=== PATIENT | male | born 1960 | race Caucasian/White ===

== ENCOUNTER 2018-06-02 10:14 | Inpatient (IN) | payer OTHER ==
[2018-06-02 10:28] LABS: ADD MAN DIFF? NO
[2018-06-02 10:32] LABS: WHITE BLOOD COUNT 7.8 10^3/ul (4.8-10.8)
[2018-06-02 10:32] LABS: BASOPHILS % 0.4 % (0.0-2.0); EOSINOPHILS # 0.1 10^3/ul (0.0-0.5); EOSINOPHILS % 1.4 % (0.0-7.0); HEMATOCRIT 41.6 % (42.0-52.0); LYMPHOCYTES # 0.9 10^3/ul (0.8-2.9); MEAN CORPUSCULAR HEMOGLOBIN 30.9 pg (29.0-33.0); MEAN CORPUSCULAR HGB CONC 33.7 g/dl (32.0-37.0); MEAN CORPUSCULAR VOLUME 91.8 fl (82.0-101.0); MEAN PLATELET VOLUME 9.1 fl (7.4-10.4); MONOCYTE # 0.5 10^3/ul (0.3-0.9); MONOCYTES % 6.9 % (0.0-11.0); NEUTROPHIL # 6.2 10^3/ul (1.6-7.5); NEUTROPHILS % 78.9 % (39.0-77.0); PLATELET COUNT 225 10^3/UL (140-415); RED BLOOD COUNT 4.53 10^6/ul (4.70-6.10); RED CELL DISTRIBUTION WIDTH 12.6 % (11.5-14.5)
[2018-06-02] MEDS: IODIXANOL LOCM 100 ML BTL (10:40)
[2018-06-02] MEDS: SOD CHLORIDE 0.9% 100 ML (10:40)
[2018-06-02 10:48] LABS: ALANINE AMINOTRANSFERASE 37 IU/L (13-69); ALBUMIN 3.2 g/dl (3.3-4.9); ALBUMIN/GLOBULIN RATIO 1.06; ALKALINE PHOSPHATASE 96 IU/L (42-121); ANION GAP 11 (8-16); ASPARTATE AMINO TRANSFERASE 36 IU/L (15-46); BILIRUBIN,INDIRECT 0.7 mg/dl (0-1.1); BILIRUBIN,TOTAL 0.7 mg/dl (0.2-1.3); BLOOD UREA NITROGEN 11 mg/dl (7-20); CALCIUM 9.1 mg/dl (8.4-10.2); CARBON DIOXIDE 27 mmol/L (21-31); CHLORIDE 108 mmol/L (97-110); CHOL/HDL RATIO 3.6 RATIO; CHOLESTEROL 124 mg/dl (100-200); CREATINE KINASE 731 IU/L (23-200); CREATININE 0.88 mg/dl (0.61-1.24); GLUCOSE 92 mg/dl (70-220); HDL CHOLESTEROL 34 mg/dl (30-78); LDL CHOLESTEROL,CALCULATED 75 mg/dl; POTASSIUM 4.1 mmol/L (3.5-5.1); SODIUM 142 mmol/L (135-144); TOTAL PROTEIN 6.2 g/dl (6.1-8.1); TRIGLYCERIDES 76 mg/dl (0-149)
[2018-06-02 10:50] LABS: ETHANOL < 10.0 mg/dl
[2018-06-02 10:52] LABS: INR 1.02; PARTIAL THROMBOPLASTIN TIME 26.8 Sec (23.0-35.0); PROTIME 13.5 Sec (11.9-14.9); PT RATIO 1.1
[2018-06-02 10:59] LABS: CK INDEX 0.8; CK-MB 5.73 ng/ml (0.0-2.4); TROPONIN-I < 0.012 ng/ml (0.000-0.120)
[2018-06-02] MEDS: LORAZEPAM 2 MG INJ IV (11:00)
[2018-06-02] MEDS ORDERED: HALOPERIDOL 5 MG INJ (12:05)
[2018-06-02 12:06] LABS: HEMOGLOBIN A1C 5.5 % (0-5.9)
[2018-06-02] MEDS: HALOPERIDOL 5 MG INJ IV (12:30)
[2018-06-02] MEDS: ASPIRIN 300 MG SUPP PR (13:19)
[2018-06-02] MEDS: SOD CHLORIDE 0.9% 1,000 ML IV (13:32)
[2018-06-02] MEDS ORDERED: NACL 0.9% 3 ML SYG IV (14:30)
[2018-06-02] MEDS: OXCARBAZEPINE 300 MG TAB PO (20:39)
[2018-06-02] MEDS: ARIPIPRAZOLE 5 MG TAB PO (20:40)
[2018-06-02] MEDS: BENZTROPINE 1 MG TAB PO (20:40)
[2018-06-03 06:15] LABS: ADD MAN DIFF? NO
[2018-06-03 06:30] LABS: WHITE BLOOD COUNT 6.6 10^3/ul (4.8-10.8)
[2018-06-03 06:30] LABS: BASOPHILS % 0.6 % (0.0-2.0); EOSINOPHILS # 0.2 10^3/ul (0.0-0.5); EOSINOPHILS % 3.3 % (0.0-7.0); HEMATOCRIT 41.9 % (42.0-52.0); HEMOGLOBIN 13.8 g/dl (14.0-18.0); LYMPHOCYTES # 1.3 10^3/ul (0.8-2.9); LYMPHOCYTES % 19.2 % (15.0-51.0); MEAN CORPUSCULAR HEMOGLOBIN 31.2 pg (29.0-33.0); MEAN CORPUSCULAR HGB CONC 32.9 g/dl (32.0-37.0); MEAN CORPUSCULAR VOLUME 94.8 fl (82.0-101.0); MEAN PLATELET VOLUME 9.4 fl (7.4-10.4); MONOCYTE # 0.4 10^3/ul (0.3-0.9); MONOCYTES % 6.6 % (0.0-11.0); NEUTROPHIL # 4.6 10^3/ul (1.6-7.5); PLATELET COUNT 215 10^3/UL (140-415); RED BLOOD COUNT 4.42 10^6/ul (4.70-6.10)
[2018-06-03 06:46] LABS: HEMOGLOBIN A1C 5.6 % (0-5.9)
[2018-06-03 07:01] LABS: ALANINE AMINOTRANSFERASE 29 IU/L (13-69); ALBUMIN 3.2 g/dl (3.3-4.9); ALKALINE PHOSPHATASE 87 IU/L (42-121); ANION GAP 11 (8-16); ASPARTATE AMINO TRANSFERASE 37 IU/L (15-46); BILIRUBIN,INDIRECT 0.6 mg/dl (0-1.1); BILIRUBIN,TOTAL 0.6 mg/dl (0.2-1.3); BLOOD UREA NITROGEN 13 mg/dl (7-20); CALCIUM 8.9 mg/dl (8.4-10.2); CARBON DIOXIDE 29 mmol/L (21-31); CHLORIDE 106 mmol/L (97-110); CREATININE 0.84 mg/dl (0.61-1.24); GLUCOSE 93 mg/dl (70-220); POTASSIUM 4.1 mmol/L (3.5-5.1); SODIUM 142 mmol/L (135-144); TOTAL PROTEIN 6.1 g/dl (6.1-8.1)
[2018-06-03] MEDS: BENZTROPINE 1 MG TAB PO ×2 (08:55→21:37)
[2018-06-03] MEDS: OXCARBAZEPINE 300 MG TAB PO ×2 (08:55→21:37)
[2018-06-03] MEDS: VENLAFAXINE (XR) 75 MG CAP PO (08:56)
[2018-06-03] MEDS ORDERED: VENLAFAXINE 25 MG TAB PO (09:00)
[2018-06-03] MEDS: ENOXAPARIN 30 MG/0.3 ML SYG SC (09:21)
[2018-06-03] MEDS: INFLUENZA VIRUS VACCINE 0.5 ML (DISPENSING) IM* (10:45)
[2018-06-03] MEDS: ASPIRIN (EC) 325 MG TAB PO (11:30)
[2018-06-03 12:26] LABS: ERYTHROCYTE SEDIMENTATION RATE 13 mm/Hr (0-20)
[2018-06-03 12:58] LABS: HIV 1&2 ANTIBODY NEGATIVE (NEGATIVE)
[2018-06-03 15:04] LABS: RAPID PLASMA REAGIN NONREACTIVE (NR)
[2018-06-03] MEDS: LORAZEPAM 2 MG INJ IV (16:00)
[2018-06-03] MEDS: ARIPIPRAZOLE 5 MG TAB PO (21:38)
[2018-06-04] MEDS: BENZTROPINE 1 MG TAB PO ×2 (08:41→20:49)
[2018-06-04] MEDS: VENLAFAXINE (XR) 75 MG CAP PO (08:41)
[2018-06-04] MEDS: ASPIRIN (EC) 325 MG TAB PO (08:41)
[2018-06-04] MEDS: OXCARBAZEPINE 300 MG TAB PO ×2 (08:41→20:49)
[2018-06-04] MEDS: ENOXAPARIN 30 MG/0.3 ML SYG SC (08:46)
[2018-06-04] MEDS: IBUPROFEN LIQUID (PED) 20 MG/ML CUP NGT ×3 (15:09→23:08)
[2018-06-04 19:51] LABS: HOMOCYSTEINE - CARDIOVASCULAR 17.6 umol/L (<11.4)
[2018-06-04] MEDS: ARIPIPRAZOLE 5 MG TAB PO (20:49)
[2018-06-04] MEDS: ATORVASTATIN 20 MG TAB PO (20:49)
[2018-06-04] MEDS: ZOLPIDEM 5 MG TAB PO (21:56)
[2018-06-05] MEDS: IBUPROFEN LIQUID (PED) 20 MG/ML CUP NGT (03:15)
[2018-06-05] MEDS: traMADol 50 MG TAB PO ×2 (07:00→20:16)
[2018-06-05] MEDS: LORAZEPAM 2 MG INJ IV (07:51)
[2018-06-05] MEDS: ASPIRIN (EC) 325 MG TAB PO (08:36)
[2018-06-05] MEDS: OXCARBAZEPINE 300 MG TAB PO ×2 (08:36→20:13)
[2018-06-05] MEDS: BENZTROPINE 1 MG TAB PO ×2 (08:36→20:09)
[2018-06-05] MEDS: VENLAFAXINE (XR) 75 MG CAP PO (08:36)
[2018-06-05] MEDS: ENOXAPARIN 30 MG/0.3 ML SYG SC (08:56)
[2018-06-05] MEDS ORDERED: LORAZEPAM 1 MG TAB PO (11:00)
[2018-06-05] MEDS: LORAZEPAM 1 MG TAB PO ×2 (11:04→20:14)
[2018-06-05] MEDS: ATORVASTATIN 20 MG TAB PO (20:13)
[2018-06-05] MEDS: ARIPIPRAZOLE 5 MG TAB PO (20:14)
[2018-06-06] MEDS: IBUPROFEN LIQUID (PED) 20 MG/ML CUP NGT (01:19)
[2018-06-06] MEDS: LORAZEPAM 1 MG TAB PO ×2 (06:29→15:53)
[2018-06-06] MEDS: ASPIRIN (EC) 325 MG TAB PO (08:23)
[2018-06-06] MEDS: BENZTROPINE 1 MG TAB PO ×2 (08:24→21:15)
[2018-06-06] MEDS: VENLAFAXINE (XR) 75 MG CAP PO (08:24)
[2018-06-06] MEDS: OXCARBAZEPINE 300 MG TAB PO ×2 (08:24→21:16)
[2018-06-06] MEDS: ENOXAPARIN 30 MG/0.3 ML SYG SC (08:30)
[2018-06-06] MEDS: traMADol 50 MG TAB PO ×2 (10:45→22:43)
[2018-06-06] MEDS: ARIPIPRAZOLE 5 MG TAB PO (21:15)
[2018-06-06] MEDS: ATORVASTATIN 20 MG TAB PO (21:15)
[2018-06-07] MEDS: LORAZEPAM 1 MG TAB PO ×2 (00:36→21:40)
[2018-06-07] MEDS: IBUPROFEN LIQUID (PED) 20 MG/ML CUP NGT ×2 (03:28→15:05)
[2018-06-07] MEDS: traMADol 50 MG TAB PO (05:56)
[2018-06-07] MEDS: ASPIRIN (EC) 325 MG TAB PO (09:53)
[2018-06-07] MEDS: BENZTROPINE 1 MG TAB PO ×2 (09:54→21:39)
[2018-06-07] MEDS: OXCARBAZEPINE 300 MG TAB PO ×2 (09:54→21:39)
[2018-06-07] MEDS: VENLAFAXINE (XR) 75 MG CAP PO (09:54)
[2018-06-07] MEDS: ENOXAPARIN 30 MG/0.3 ML SYG SC (10:00)
[2018-06-07] MEDS ORDERED: METOPROLOL 25 MG TAB PO (21:00)
[2018-06-07] MEDS ORDERED: ARIPIPRAZOLE 5 MG TAB PO (21:00)
[2018-06-07] MEDS ORDERED: OXCARBAZEPINE 300 MG TAB PO (21:00)
[2018-06-07] MEDS: ATORVASTATIN 20 MG TAB PO (21:39)
[2018-06-07] MEDS: ARIPIPRAZOLE 10 MG TAB PO (21:40)
[2018-06-08] MEDS: IBUPROFEN LIQUID (PED) 20 MG/ML CUP NGT (01:52)
[2018-06-08] MEDS: ONDANSETRON 4 MG INJ IV (04:32)
[2018-06-08] MEDS: traMADol 50 MG TAB PO ×3 (05:00→21:53)
[2018-06-08 05:06] LABS: ADD UMIC YES; UR ASCORBIC ACID NEGATIVE (NEGATIVE); UR BILIRUBIN (Dip) NEGATIVE (NEGATIVE); UR BLOOD (Dip) NEGATIVE (NEGATIVE); UR CLARITY CLEAR (CLEAR); UR COLOR YELLOW (YELLOW); UR GLUCOSE (Dip) NEGATIVE (NEGATIVE); UR KETONES (Dip) NEGATIVE (NEGATIVE); UR LEUKOCYTE ESTERASE (Dip) NEGATIVE Leu/ul (NEGATIVE); UR MUCUS FEW /HPF (NONE SEEN); UR NITRITE (Dip) NEGATIVE (NEGATIVE); UR RBC 0 /HPF (0-5); UR SPECIFIC GRAVITY (Dip) 1.029 (1.003-1.030); UR TOTAL PROTEIN (Dip) 1+ mg/dl (NEGATIVE); UR UROBILINOGEN (Dip) 2+ mg/dL (NEGATIVE); UR WBC 1 /HPF (0-5)
[2018-06-08] MEDS: BENZTROPINE 1 MG TAB PO ×2 (08:54→21:53)
[2018-06-08] MEDS: VENLAFAXINE (XR) 75 MG CAP PO (08:55)
[2018-06-08] MEDS: OXCARBAZEPINE 300 MG TAB PO ×2 (08:55→21:54)
[2018-06-08] MEDS: ENOXAPARIN 30 MG/0.3 ML SYG SC (08:56)
[2018-06-08] MEDS: ASPIRIN (EC) 325 MG TAB PO (08:59)
[2018-06-08] MEDS ORDERED: ENOXAPARIN 30 MG/0.3 ML SYG SC (09:00)
[2018-06-08] MEDS ORDERED: OXCARBAZEPINE 300 MG TAB PO (09:00)
[2018-06-08] MEDS ORDERED: VENLAFAXINE (XR) 75 MG CAP PO (09:00)
[2018-06-08] MEDS: LORAZEPAM 1 MG TAB PO ×2 (09:14→20:09)
[2018-06-08] MEDS: ARIPIPRAZOLE 10 MG TAB PO (21:53)
[2018-06-08] MEDS: ATORVASTATIN 20 MG TAB PO (21:53)
[2018-06-08] MEDS: DOCUSATE SODIUM 100 MG CAP PO (21:54)
[2018-06-08] MEDS: SENNA TAB PO (21:54)
[2018-06-09] MEDS: IBUPROFEN LIQUID (PED) 20 MG/ML CUP NGT ×2 (00:14→21:43)
[2018-06-09] MEDS: LORAZEPAM 1 MG TAB PO ×3 (04:25→21:43)
[2018-06-09] MEDS: ENOXAPARIN 30 MG/0.3 ML SYG SC (09:00)
[2018-06-09] MEDS: VENLAFAXINE (XR) 75 MG CAP PO (09:00)
[2018-06-09] MEDS: OXCARBAZEPINE 300 MG TAB PO ×2 (10:31→20:14)
[2018-06-09] MEDS: BENZTROPINE 1 MG TAB PO ×2 (10:31→20:14)
[2018-06-09] MEDS: SENNA TAB PO ×2 (10:35→20:18)
[2018-06-09] MEDS: DOCUSATE SODIUM 100 MG CAP PO ×2 (10:35→20:14)
[2018-06-09] MEDS: ASPIRIN (EC) 325 MG TAB PO (10:35)
[2018-06-09] MEDS ORDERED: BISACODYL (EC) 5 MG TAB PO (18:30)
[2018-06-09] MEDS: ARIPIPRAZOLE 10 MG TAB PO (20:13)
[2018-06-09] MEDS: ATORVASTATIN 20 MG TAB PO (20:13)
[2018-06-09] MEDS: traMADol 50 MG TAB PO (20:14)
[2018-06-09] MEDS ORDERED: HALOPERIDOL 5 MG TAB PO (23:55)
[2018-06-10] MEDS: LORAZEPAM 2 MG INJ IV ×2 (00:10→05:39)
[2018-06-10] MEDS: HALOPERIDOL 5 MG INJ IM ×2 (00:10→16:09)
[2018-06-10] MEDS ORDERED: HALOPERIDOL 5 MG INJ (00:10)
[2018-06-10] MEDS: LORAZEPAM 1 MG TAB PO ×2 (04:52→11:57)
[2018-06-10] MEDS: DOCUSATE SODIUM 100 MG CAP PO ×2 (09:06→20:40)
[2018-06-10] MEDS: SENNA TAB PO ×2 (09:06→20:41)
[2018-06-10] MEDS: VENLAFAXINE (XR) 75 MG CAP PO (09:06)
[2018-06-10] MEDS: ASPIRIN (EC) 325 MG TAB PO (09:06)
[2018-06-10] MEDS: ENOXAPARIN 30 MG/0.3 ML SYG SC (09:20)
[2018-06-10] MEDS: traMADol 50 MG TAB PO ×2 (10:12→20:40)
[2018-06-10] MEDS: BENZTROPINE 1 MG TAB PO ×2 (10:33→22:51)
[2018-06-10] MEDS: OXCARBAZEPINE 300 MG TAB PO ×2 (10:34→20:41)
[2018-06-10] MEDS: BACLOFEN 10 MG TAB PO (13:57)
[2018-06-10] MEDS: IBUPROFEN 400 MG TAB NGT (13:57)
[2018-06-10] MEDS: ATORVASTATIN 20 MG TAB PO (20:40)
[2018-06-10] MEDS: ARIPIPRAZOLE 10 MG TAB PO (22:51)
[2018-06-10] MEDS: DIPHENHYDRAMINE 50 MG CAP PO (22:51)
[2018-06-11] MEDS: traMADol 50 MG TAB PO ×2 (06:49→17:46)
[2018-06-11] MEDS: VENLAFAXINE (XR) 75 MG CAP PO (09:41)
[2018-06-11] MEDS: BENZTROPINE 1 MG TAB PO ×2 (09:41→21:02)
[2018-06-11] MEDS: DOCUSATE SODIUM 100 MG CAP PO ×2 (09:41→21:01)
[2018-06-11] MEDS: OXCARBAZEPINE 300 MG TAB PO ×2 (09:41→21:02)
[2018-06-11] MEDS: SENNA TAB PO ×2 (09:41→21:01)
[2018-06-11] MEDS: ASPIRIN (EC) 325 MG TAB PO (09:41)
[2018-06-11] MEDS: ENOXAPARIN 30 MG/0.3 ML SYG SC (10:52)
[2018-06-11] MEDS: ARIPIPRAZOLE 10 MG TAB PO (21:02)
[2018-06-11] MEDS: ATORVASTATIN 20 MG TAB PO (21:02)
[2018-06-11] MEDS: DIPHENHYDRAMINE 50 MG CAP PO (22:29)
[2018-06-12] MEDS: traMADol 50 MG TAB PO ×3 (06:54→21:00)
[2018-06-12] MEDS: DOCUSATE SODIUM 100 MG CAP PO ×2 (09:33→20:59)
[2018-06-12] MEDS: OXCARBAZEPINE 300 MG TAB PO ×2 (09:33→20:59)
[2018-06-12] MEDS: SENNA TAB PO ×2 (09:33→20:59)
[2018-06-12] MEDS: ASPIRIN (EC) 325 MG TAB PO (09:33)
[2018-06-12] MEDS: VENLAFAXINE (XR) 75 MG CAP PO (09:33)
[2018-06-12] MEDS: BENZTROPINE 1 MG TAB PO ×2 (09:33→20:59)
[2018-06-12] MEDS: ENOXAPARIN 30 MG/0.3 ML SYG SC (09:34)
[2018-06-12] MEDS: ARIPIPRAZOLE 10 MG TAB PO (20:58)
[2018-06-12] MEDS: DIPHENHYDRAMINE 50 MG CAP PO (20:59)
[2018-06-12] MEDS: ATORVASTATIN 20 MG TAB PO (20:59)
[2018-06-13] MEDS: ASPIRIN (EC) 325 MG TAB PO (08:57)
[2018-06-13] MEDS: DOCUSATE SODIUM 100 MG CAP PO ×2 (08:57→20:19)
[2018-06-13] MEDS: BENZTROPINE 1 MG TAB PO ×2 (08:57→20:19)
[2018-06-13] MEDS: SENNA TAB PO ×2 (08:58→20:19)
[2018-06-13] MEDS: VENLAFAXINE (XR) 75 MG CAP PO (08:58)
[2018-06-13] MEDS: OXCARBAZEPINE 300 MG TAB PO ×2 (08:58→20:19)
[2018-06-13] MEDS: ENOXAPARIN 30 MG/0.3 ML SYG SC (08:59)
[2018-06-13] MEDS: traMADol 50 MG TAB PO ×3 (14:14→20:50)
[2018-06-13] MEDS: IBUPROFEN 400 MG TAB PO (15:08)
[2018-06-13] MEDS: ATORVASTATIN 20 MG TAB PO (20:19)
[2018-06-13] MEDS: ARIPIPRAZOLE 10 MG TAB PO (20:19)
[2018-06-13] MEDS: DIPHENHYDRAMINE 50 MG CAP PO (20:19)
[2018-06-14] MEDS: LORAZEPAM 1 MG TAB PO (00:05)
[2018-06-14] MEDS: traMADol 50 MG TAB PO (03:07)
[2018-06-14] MEDS: SENNA TAB PO ×2 (10:08→21:00)
[2018-06-14] MEDS: OXCARBAZEPINE 300 MG TAB PO ×2 (10:08→20:53)
[2018-06-14] MEDS: VENLAFAXINE (XR) 75 MG CAP PO (10:08)
[2018-06-14] MEDS: ASPIRIN (EC) 325 MG TAB PO (10:08)
[2018-06-14] MEDS: DOCUSATE SODIUM 100 MG CAP PO ×2 (10:09→21:00)
[2018-06-14] MEDS: ENOXAPARIN 30 MG/0.3 ML SYG SC (10:09)
[2018-06-14] MEDS: BENZTROPINE 1 MG TAB PO ×2 (10:09→20:53)
[2018-06-14] MEDS: ATORVASTATIN 20 MG TAB PO (20:53)
[2018-06-14] MEDS: ARIPIPRAZOLE 10 MG TAB PO (20:53)
[2018-06-14] MEDS: IBUPROFEN 400 MG TAB PO (20:59)
[2018-06-15] MEDS: LORAZEPAM 1 MG TAB PO (01:11)
[2018-06-15] MEDS: ENOXAPARIN 30 MG/0.3 ML SYG SC (08:59)
[2018-06-15] MEDS: DOCUSATE SODIUM 100 MG CAP PO ×2 (09:00→21:50)
[2018-06-15] MEDS: SENNA TAB PO ×2 (09:00→21:00)
[2018-06-15] MEDS: IBUPROFEN 400 MG TAB PO ×2 (09:03→18:04)
[2018-06-15] MEDS: ASPIRIN (EC) 325 MG TAB PO (09:03)
[2018-06-15] MEDS: VENLAFAXINE (XR) 75 MG CAP PO (09:04)
[2018-06-15] MEDS: BENZTROPINE 1 MG TAB PO ×2 (09:04→21:49)
[2018-06-15] MEDS: OXCARBAZEPINE 300 MG TAB PO ×2 (09:04→21:49)
[2018-06-15] MEDS: ARIPIPRAZOLE 10 MG TAB PO (21:49)
[2018-06-15] MEDS: ATORVASTATIN 20 MG TAB PO (21:49)
[2018-06-16] MEDS: traMADol 50 MG TAB PO (00:26)
[2018-06-16] MEDS: IBUPROFEN 400 MG TAB PO ×3 (08:40→22:21)
[2018-06-16] MEDS: SENNA TAB PO ×2 (09:00→20:18)
[2018-06-16] MEDS: ENOXAPARIN 30 MG/0.3 ML SYG SC (09:11)
[2018-06-16] MEDS: OXCARBAZEPINE 300 MG TAB PO ×2 (09:11→20:18)
[2018-06-16] MEDS: VENLAFAXINE (XR) 75 MG CAP PO (09:11)
[2018-06-16] MEDS: BENZTROPINE 1 MG TAB PO ×2 (09:11→20:18)
[2018-06-16] MEDS: ASPIRIN (EC) 325 MG TAB PO (09:11)
[2018-06-16] MEDS: DOCUSATE SODIUM 100 MG CAP PO ×2 (09:12→20:18)
[2018-06-16] MEDS: ATORVASTATIN 20 MG TAB PO (20:18)
[2018-06-16] MEDS: ARIPIPRAZOLE 10 MG TAB PO (20:18)
[2018-06-17] MEDS: IBUPROFEN 400 MG TAB PO ×2 (05:37→20:19)
[2018-06-17] MEDS: SENNA TAB PO ×2 (09:06→20:18)
[2018-06-17] MEDS: OXCARBAZEPINE 300 MG TAB PO ×2 (09:06→20:18)
[2018-06-17] MEDS: VENLAFAXINE (XR) 75 MG CAP PO (09:06)
[2018-06-17] MEDS: traMADol 50 MG TAB PO ×3 (09:06→21:49)
[2018-06-17] MEDS: DOCUSATE SODIUM 100 MG CAP PO ×2 (09:07→20:18)
[2018-06-17] MEDS: ASPIRIN (EC) 325 MG TAB PO (09:07)
[2018-06-17] MEDS: BENZTROPINE 1 MG TAB PO ×2 (09:07→20:18)
[2018-06-17] MEDS: ENOXAPARIN 30 MG/0.3 ML SYG SC (09:13)
[2018-06-17] MEDS: ATORVASTATIN 20 MG TAB PO (20:18)
[2018-06-17] MEDS: ARIPIPRAZOLE 10 MG TAB PO (20:18)
[2018-06-17] MEDS: LORAZEPAM 1 MG TAB PO (20:23)
[2018-06-18] MEDS: ZOLPIDEM 5 MG TAB PO ×2 (00:56→22:48)
[2018-06-18] MEDS: VENLAFAXINE (XR) 75 MG CAP PO (08:35)
[2018-06-18] MEDS: BENZTROPINE 1 MG TAB PO ×2 (08:36→21:52)
[2018-06-18] MEDS: ASPIRIN (EC) 325 MG TAB PO (08:36)
[2018-06-18] MEDS: OXCARBAZEPINE 300 MG TAB PO ×2 (08:37→21:51)
[2018-06-18] MEDS: ENOXAPARIN 30 MG/0.3 ML SYG SC (08:38)
[2018-06-18] MEDS: traMADol 50 MG TAB PO ×2 (08:41→21:51)
[2018-06-18] MEDS: DOCUSATE SODIUM 100 MG CAP PO ×2 (08:43→21:51)
[2018-06-18] MEDS: SENNA TAB PO ×2 (08:43→21:51)
[2018-06-18] MEDS: LORAZEPAM 1 MG TAB PO (10:47)
[2018-06-18] MEDS ORDERED: ALBUTEROL 0.083% (NEB) 2.5 MG/3 ML AMP HHN ×2 (11:30)
[2018-06-18] MEDS: IBUPROFEN 400 MG TAB PO (15:11)
[2018-06-18] MEDS: MUPIROCIN 2% 22 GM OINT TOP (17:00)
[2018-06-18] MEDS: UREA 40% CR 7OZ TOP (17:00)
[2018-06-18] MEDS: ATORVASTATIN 20 MG TAB PO (21:51)
[2018-06-18] MEDS: ARIPIPRAZOLE 10 MG TAB PO (21:51)
[2018-06-18] MEDS: CLOTRIMAZOLE 1% 30 GM CR TOP (21:52)
[2018-06-18] MEDS: DIPHENHYDRAMINE 50 MG CAP PO (21:52)
[2018-06-19] MEDS: LORAZEPAM 1 MG TAB PO ×2 (02:38→17:05)
[2018-06-19] MEDS: UREA 40% CR 7OZ TOP (09:00)
[2018-06-19] MEDS: ASPIRIN (EC) 325 MG TAB PO (09:22)
[2018-06-19] MEDS: ENOXAPARIN 30 MG/0.3 ML SYG SC (09:23)
[2018-06-19] MEDS: OXCARBAZEPINE 300 MG TAB PO ×2 (09:23→20:56)
[2018-06-19] MEDS: DOCUSATE SODIUM 100 MG CAP PO ×2 (09:23→20:57)
[2018-06-19] MEDS: SENNA TAB PO ×2 (09:23→20:56)
[2018-06-19] MEDS: BENZTROPINE 1 MG TAB PO ×2 (09:23→20:56)
[2018-06-19] MEDS: VENLAFAXINE (XR) 75 MG CAP PO (09:23)
[2018-06-19] MEDS: CLOTRIMAZOLE 1% 30 GM CR TOP ×2 (09:24→21:00)
[2018-06-19] MEDS: MUPIROCIN 2% 22 GM OINT TOP (09:24)
[2018-06-19] MEDS: DIPHENHYDRAMINE 50 MG CAP PO (20:56)
[2018-06-19] MEDS: traMADol 50 MG TAB PO (20:56)
[2018-06-19] MEDS: ATORVASTATIN 20 MG TAB PO (20:56)
[2018-06-19] MEDS: ZOLPIDEM 5 MG TAB PO (21:58)
[2018-06-19] MEDS: ARIPIPRAZOLE 10 MG TAB PO (22:56)
[2018-06-20] MEDS: LORAZEPAM 1 MG TAB PO ×3 (02:36→23:43)
[2018-06-20] MEDS: ASPIRIN (EC) 325 MG TAB PO (08:31)
[2018-06-20] MEDS: BENZTROPINE 1 MG TAB PO ×2 (08:31→20:05)
[2018-06-20] MEDS: OXCARBAZEPINE 300 MG TAB PO ×2 (08:31→20:06)
[2018-06-20] MEDS: SENNA TAB PO ×2 (08:32→20:04)
[2018-06-20] MEDS: VENLAFAXINE (XR) 75 MG CAP PO (08:32)
[2018-06-20] MEDS: MUPIROCIN 2% 22 GM OINT TOP (08:33)
[2018-06-20] MEDS: DOCUSATE SODIUM 100 MG CAP PO ×2 (08:33→20:05)
[2018-06-20] MEDS: ENOXAPARIN 30 MG/0.3 ML SYG SC (08:33)
[2018-06-20] MEDS: CLOTRIMAZOLE 1% 30 GM CR TOP ×2 (08:34→20:38)
[2018-06-20] MEDS: UREA 40% CR 7OZ TOP (08:36)
[2018-06-20] MEDS: traMADol 50 MG TAB PO ×2 (14:24→20:13)
[2018-06-20] MEDS: IBUPROFEN 400 MG TAB PO ×2 (14:26→23:47)
[2018-06-20] MEDS: ARIPIPRAZOLE 10 MG TAB PO (20:05)
[2018-06-20] MEDS: ATORVASTATIN 20 MG TAB PO (20:06)
[2018-06-21] MEDS: IBUPROFEN 400 MG TAB PO ×2 (09:14→22:07)
[2018-06-21] MEDS: OXCARBAZEPINE 300 MG TAB PO ×2 (09:15→21:19)
[2018-06-21] MEDS: VENLAFAXINE (XR) 75 MG CAP PO (09:15)
[2018-06-21] MEDS: DOCUSATE SODIUM 100 MG CAP PO ×2 (09:15→21:20)
[2018-06-21] MEDS: SENNA TAB PO ×2 (09:15→21:20)
[2018-06-21] MEDS: ASPIRIN (EC) 325 MG TAB PO (09:15)
[2018-06-21] MEDS: BENZTROPINE 1 MG TAB PO ×2 (09:16→21:19)
[2018-06-21] MEDS: MUPIROCIN 2% 22 GM OINT TOP (09:18)
[2018-06-21] MEDS: CLOTRIMAZOLE 1% 30 GM CR TOP ×2 (09:18→21:20)
[2018-06-21] MEDS: ENOXAPARIN 30 MG/0.3 ML SYG SC (09:20)
[2018-06-21] MEDS: LORAZEPAM 1 MG TAB PO ×2 (10:54→18:07)
[2018-06-21] MEDS: UREA 40% CREAM TOP (11:30)
[2018-06-21] MEDS: ARIPIPRAZOLE 10 MG TAB PO (21:19)
[2018-06-21] MEDS: traMADol 50 MG TAB PO (21:20)
[2018-06-21] MEDS: DIPHENHYDRAMINE 50 MG CAP PO (21:20)
[2018-06-21] MEDS: ATORVASTATIN 20 MG TAB PO (21:20)
[2018-06-21] MEDS: ZOLPIDEM 5 MG TAB PO (22:12)
[2018-06-22] MEDS: LORAZEPAM 1 MG TAB PO ×2 (01:16→20:23)
[2018-06-22] MEDS: traMADol 50 MG TAB PO (07:50)
[2018-06-22] MEDS: DOCUSATE SODIUM 100 MG CAP PO ×2 (08:52→20:23)
[2018-06-22] MEDS: BENZTROPINE 1 MG TAB PO ×2 (08:52→20:22)
[2018-06-22] MEDS: ASPIRIN (EC) 325 MG TAB PO (08:52)
[2018-06-22] MEDS: SENNA TAB PO ×2 (08:52→20:22)
[2018-06-22] MEDS: VENLAFAXINE (XR) 75 MG CAP PO (08:52)
[2018-06-22] MEDS: OXCARBAZEPINE 300 MG TAB PO ×2 (08:53→20:22)
[2018-06-22] MEDS: ENOXAPARIN 30 MG/0.3 ML SYG SC (08:54)
[2018-06-22] MEDS: UREA 40% CREAM TOP (09:00)
[2018-06-22] MEDS: CLOTRIMAZOLE 1% 30 GM CR TOP ×2 (09:02→20:23)
[2018-06-22] MEDS: MUPIROCIN 2% 22 GM OINT TOP (09:02)
[2018-06-22] MEDS: HYDROCODONE/APAP (5/325) TAB PO ×2 (12:39→21:42)
[2018-06-22] MEDS: ARIPIPRAZOLE 10 MG TAB PO (20:22)
[2018-06-22] MEDS: ATORVASTATIN 20 MG TAB PO (20:23)
[2018-06-23] MEDS: LORAZEPAM 1 MG TAB PO ×3 (04:09→22:44)
[2018-06-23] MEDS: HYDROCODONE/APAP (5/325) TAB PO ×2 (06:37→15:36)
[2018-06-23] MEDS: BENZTROPINE 1 MG TAB PO ×2 (08:20→20:38)
[2018-06-23] MEDS: OXCARBAZEPINE 300 MG TAB PO ×2 (08:20→20:38)
[2018-06-23] MEDS: VENLAFAXINE (XR) 75 MG CAP PO (08:20)
[2018-06-23] MEDS: SENNA TAB PO ×2 (08:20→20:38)
[2018-06-23] MEDS: DOCUSATE SODIUM 100 MG CAP PO ×2 (08:21→20:38)
[2018-06-23] MEDS: ASPIRIN (EC) 325 MG TAB PO (08:21)
[2018-06-23] MEDS: CLOTRIMAZOLE 1% 30 GM CR TOP ×2 (08:21→20:38)
[2018-06-23] MEDS: MUPIROCIN 2% 22 GM OINT TOP (08:22)
[2018-06-23] MEDS: traMADol 50 MG TAB PO (08:24)
[2018-06-23] MEDS: ENOXAPARIN 30 MG/0.3 ML SYG SC (08:25)
[2018-06-23] MEDS: UREA 40% CREAM TOP (19:32)
[2018-06-23] MEDS: ARIPIPRAZOLE 10 MG TAB PO (20:38)
[2018-06-23] MEDS: ATORVASTATIN 20 MG TAB PO (20:39)
[2018-06-24] MEDS: HYDROCODONE/APAP (5/325) TAB PO ×3 (00:14→19:38)
[2018-06-24] MEDS: LORAZEPAM 1 MG TAB PO ×3 (05:23→20:54)
[2018-06-24] MEDS: ENOXAPARIN 30 MG/0.3 ML SYG SC (08:20)
[2018-06-24] MEDS: DONEPEZIL 5 MG TAB PO (08:21)
[2018-06-24] MEDS: DOCUSATE SODIUM 100 MG CAP PO ×2 (08:21→20:53)
[2018-06-24] MEDS: VENLAFAXINE (XR) 75 MG CAP PO (08:21)
[2018-06-24] MEDS: ASPIRIN (EC) 325 MG TAB PO (08:21)
[2018-06-24] MEDS: SENNA TAB PO ×2 (08:21→20:53)
[2018-06-24] MEDS: BENZTROPINE 1 MG TAB PO ×2 (08:22→20:54)
[2018-06-24] MEDS: OXCARBAZEPINE 300 MG TAB PO ×2 (08:23→20:53)
[2018-06-24] MEDS: UREA 40% CREAM TOP (09:00)
[2018-06-24] MEDS: CLOTRIMAZOLE 1% 30 GM CR TOP ×2 (11:29→23:19)
[2018-06-24] MEDS: MUPIROCIN 2% 22 GM OINT TOP (11:30)
[2018-06-24] MEDS: MEMANTINE 5 MG TAB PO (14:37)
[2018-06-24] MEDS: ARIPIPRAZOLE 5 MG TAB PO (20:54)
[2018-06-24] MEDS: ATORVASTATIN 20 MG TAB PO (20:54)
[2018-06-24] MEDS: DIPHENHYDRAMINE 50 MG CAP PO (23:57)
[2018-06-25] MEDS: LORAZEPAM 1 MG TAB PO ×4 (01:48→20:16)
[2018-06-25] MEDS: HALOPERIDOL 5 MG INJ IM (01:52)
[2018-06-25] MEDS: ASPIRIN (EC) 325 MG TAB PO (09:52)
[2018-06-25] MEDS: HYDROCODONE/APAP (5/325) TAB PO ×2 (09:52→17:43)
[2018-06-25] MEDS: DONEPEZIL 5 MG TAB PO (09:53)
[2018-06-25] MEDS: DOCUSATE SODIUM 100 MG CAP PO ×2 (09:53→20:14)
[2018-06-25] MEDS: MUPIROCIN 2% 22 GM OINT TOP (09:53)
[2018-06-25] MEDS: MEMANTINE 5 MG TAB PO (09:53)
[2018-06-25] MEDS: SENNA TAB PO ×2 (09:53→20:14)
[2018-06-25] MEDS: VENLAFAXINE (XR) 75 MG CAP PO (09:53)
[2018-06-25] MEDS: OXCARBAZEPINE 300 MG TAB PO ×2 (09:53→20:15)
[2018-06-25] MEDS: BENZTROPINE 1 MG TAB PO ×2 (09:53→20:14)
[2018-06-25] MEDS: CLOTRIMAZOLE 1% 30 GM CR TOP ×2 (09:54→22:45)
[2018-06-25] MEDS: ENOXAPARIN 30 MG/0.3 ML SYG SC (09:56)
[2018-06-25] MEDS: UREA 40% CREAM TOP (09:56)
[2018-06-25] MEDS: IBUPROFEN 400 MG TAB PO ×2 (13:15→22:55)
[2018-06-25] MEDS: DIPHENHYDRAMINE 50 MG CAP PO (20:14)
[2018-06-25] MEDS: ARIPIPRAZOLE 5 MG TAB PO (20:14)
[2018-06-25] MEDS: ATORVASTATIN 20 MG TAB PO (20:15)
[2018-06-25] MEDS: traMADol 50 MG TAB PO (22:45)
[2018-06-26] MEDS: HYDROCODONE/APAP (5/325) TAB PO (02:13)
[2018-06-26] MEDS: LORAZEPAM 1 MG TAB PO ×2 (03:08→13:59)
[2018-06-26] MEDS: IBUPROFEN 400 MG TAB PO (05:50)
[2018-06-26] MEDS: BENZTROPINE 1 MG TAB PO (08:09)
[2018-06-26] MEDS: ASPIRIN (EC) 325 MG TAB PO (08:10)
[2018-06-26] MEDS: VENLAFAXINE (XR) 75 MG CAP PO (08:10)
[2018-06-26] MEDS: SENNA TAB PO (08:10)
[2018-06-26] MEDS: DOCUSATE SODIUM 100 MG CAP PO (08:10)
[2018-06-26] MEDS: OXCARBAZEPINE 300 MG TAB PO (08:10)
[2018-06-26] MEDS: DONEPEZIL 5 MG TAB PO (08:11)
[2018-06-26] MEDS: MEMANTINE 5 MG TAB PO (08:11)
[2018-06-26] MEDS: MUPIROCIN 2% 22 GM OINT TOP (08:12)
[2018-06-26] MEDS: UREA 40% CREAM TOP (08:12)
[2018-06-26] MEDS: ENOXAPARIN 30 MG/0.3 ML SYG SC (08:12)
[2018-06-26] MEDS: CLOTRIMAZOLE 1% 30 GM CR TOP (08:13)
[2018-06-26] MEDS: traMADol 50 MG TAB PO (09:58)
== END 2018-06-26 17:02 | DRG 65 ==
LOC: TEL 06-03 03:15 → PP2 06-07 21:09 → 6WM 06-10 07:23 → PP2 06-11 16:23 → TEL 16:40 → E/R 10:14 → PP2 06-10 18:12 → TEL 13:11
PROVIDERS: Internal Medicine
DX: I63.9 Cerebral infarction, unspecified (principal); G81.91 Hemiplegia, unspecified affecting right dominant side; G95.20 Unspecified cord compression; F20.0 Paranoid schizophrenia; R29.709 NIHSS score 9; F31.9 Bipolar disorder, unspecified; F15.10 Other stimulant abuse, uncomplicated; Z72.0 Tobacco use; M25.519 Pain in unspecified shoulder; B35.1 Tinea unguium; B35.3 Tinea pedis; L84 Corns and callosities; F03.90 Unspecified dementia, unspecified severity, without behavioral disturbance, psychotic disturbance, mood disturbance, and anxiety
CPT/HCPCS: 36415; 70450; 70496; 70498; 70551; 71045; 72142; 80053; 80061; 80307; 81001; 82550; 82553; 82962; 83036; 83090; 84484; 85025; 85610; 85651; 85730; 86592; 86703; 86850; 86900; 86901; 88304; 90686; 92507; 93005; 93306; 96374; 96375; 97110; 97162; 97165; 97530; 97535; 99291-25